=== PATIENT | female | born 1985 | race Hispanic/Latino ===

== ENCOUNTER 2021-04-16 09:32 | Outpatient (CLI) | payer OTHER | END 2021-04-16 09:33 | disposition home or self-care (01) | LOC: BICULT 09:32 | PROVIDERS: ATTEND Family Medicine | DX: O09.892 Supervision of other high risk pregnancies, second trimester (principal); Z3A.19 19 weeks gestation of pregnancy | CPT/HCPCS: 76805 ==

== ENCOUNTER 2023-09-14 00:33 | Inpatient (IN) | payer OTHER ==
[2023-09-14] MEDS ORDERED: Acetaminophen 500 MG TAB ONE (01:02)
[2023-09-14] MEDS ORDERED: Ketorolac Tromethamine 30 MG (1 mL) VIAL ONE (02:10)
[2023-09-14 04:35] VITALS: BMI 33.8
[2023-09-14] MEDS: Propylthiouracil 50 MG TAB PO SCH ×2 (04:49→08:33)
[2023-09-14] MEDS: Hydrocortisone Sod Succ/PF 100 mg/2 ml Vial IVP SCH ×2 (04:56→12:55)
[2023-09-14 05:46] LABS: #Basophils 0.03 10x3/uL (0.0-0.2); #Eosinphils Less than 0.03 10x3/uL (0.0-0.7); %Basophils 0.4 % (0.0-1.0); %Eosinophils 0.2 % (0.0-10.0); %Lymphocytes 16.4 % (21.0-51.0); %Monocytes 6.7 % (0.0-10.0); %Neutrophils 76.1 % (42.0-75.0); Mean Corpuscular Hemoglobin 23.3 pg (27.0-31.0); Mean Corpuscular Volume 77.5 fL (78.0-98.0); Mean Platelet Volume 9.6 fL (7.4-10.4); Platelet Count 207 10x3/uL (130-400); RBC Distribution Width 17.1 % (11.5-14.5); Red Blood Cell (RBC) Count 3.87 mill/uL (4.20-5.40)
[2023-09-14] MEDS ORDERED: Potassium Iodide 1,000 MG/ML ORAL SOL PO SCH (06:00)
[2023-09-14 06:07] LABS: ALT (SGPT) 39 U/L (8-55); AST (SGOT) 38 U/L (5-34); Albumin 2.5 g/dL (3.5-5.0); Alkaline Phosphatase 146 U/L (40-110); Anion Gap 14 mmol/L (10-20); BUN (Urea Nitrogen) 13 mg/dL (7.0-18.7); Bilirubin, Total 1.4 mg/dL (0.2-1.2); Calc. Creatinine Clearance 170 mL/min (70-130); Calcium 8.5 mg/dL (7.8-10.44); Carbon Dioxide 23 mmol/L (22-29); Chloride 107 mmol/L (98-107); Estimated GFR 118; Globulin 3.4 g/dL (2.4-3.5); Glucose 121 mg/dL (70-105); Potassium 3.8 mmol/L (3.5-5.1); Protein, Total 5.9 g/dL (6.0-8.3); Sodium 140 mmol/L (136-145)
[2023-09-14 06:15] LABS: Troponin I 0.045 ng/mL (< 0.028)
[2023-09-14] MEDS: cefTRIAXone\\ROCEPHIN 2 GM in Sodium Chloride 0.9% 100 ML IVPB SCH (06:16)
[2023-09-14] MEDS: Propranolol 60 MG TAB PO SCH (06:16)
[2023-09-14] MEDS: Potassium Iodide 1,000 MG/ML ORAL SOL PO SCH (06:47)
[2023-09-14 07:13] LABS: T4 2.29 ug/dL (4.87-11.72)
[2023-09-14] MEDS: Famotidine 20 MG TAB PO SCH (08:33)
[2023-09-14 08:42] LABS: Troponin I 0.032 ng/mL (< 0.028)
[2023-09-14] MEDS ORDERED: Enoxaparin 40 MG (0.4 mL) SYRINGE SC SCH (09:00)
[2023-09-14] MEDS ORDERED: Famotidine 20 MG TAB PO SCH (09:00)
[2023-09-14] MEDS: Acetaminophen 325 MG TAB PO PRN (12:56)
[2023-09-14] MEDS: Ondansetron PF 4 MG/2 ML Vial IVP PRN (13:02)
[2023-09-14 13:05] LABS: Troponin I 0.016 ng/mL (< 0.028)
[2023-09-14 13:11] LABS: Base Excess (BEa) -4.2 mEq/L (-2.0 to +3.0); CO2 Tension 25.1 mmHg (35.0-45.0); Calcium, Ionized (arterial) 1.09 mmol/L (1.12-1.30); Carboxyhemoglobin (COHb) 0.7 gm% (0.0-3.0); Hematocrit-ABG 33 % (36.0-47.0); Hemoglobin (Hb) 11.3 g/dL (12.0-16.0); Potassium - ABG Lab 4.92 mmol/L (3.70-5.30); pH, Arterial 7.474 (7.35-7.45)
[2023-09-14 13:12] LABS: O2 Tension (PaO2), arterial 42.8 mmHg (80.0-100.0); Puncture Site RRA
[2023-09-14] MEDS: Furosemide 40 MG (4 mL) VIAL SLOW IVP SCH (13:25)
[2023-09-14] MEDS ORDERED: Promethazine HCl 25 MG/ML VIAL IM PRN (13:29)
[2023-09-14] MEDS: Propranolol 40 MG TAB PO SCH (14:00)
[2023-09-14] MEDS: Promethazine HCl 25 MG in Sodium Chloride 0.9% 50 ML IVPB PRN (17:25)
[2023-09-14 20:21] LABS: Free T4 (Free Thyroxine) 2.12 ng/dL (0.70-1.48)
[2023-09-15 04:09] LABS: #Basophils Less than 0.03 10x3/uL (0.0-0.2); #Eosinphils Less than 0.03 10x3/uL (0.0-0.7); %Basophils 0.2 % (0.0-1.0); %Lymphocytes 17.9 % (21.0-51.0); %Monocytes 6.7 % (0.0-10.0); Hematocrit 30.3 % (36.0-47.0); Mean Corpuscular HGB CONC 29.7 g/dL (32.0-36.0); Mean Corpuscular Hemoglobin 23.2 pg (27.0-31.0); Mean Corpuscular Volume 78.1 fL (78.0-98.0); Mean Platelet Volume 9.8 fL (7.4-10.4); Platelet Count 205 10x3/uL (130-400); RBC Distribution Width 16.9 % (11.5-14.5); Red Blood Cell (RBC) Count 3.88 mill/uL (4.20-5.40)
[2023-09-15 04:37] LABS: ALT (SGPT) 241 U/L (8-55); AST (SGOT) 246 U/L (5-34); Albumin 2.4 g/dL (3.5-5.0); Alkaline Phosphatase 149 U/L (40-110); Anion Gap 14 mmol/L (10-20); BUN (Urea Nitrogen) 13 mg/dL (7.0-18.7); Bilirubin, Total 0.5 mg/dL (0.2-1.2); Calc. Creatinine Clearance 167 mL/min (70-130); Calcium 8.6 mg/dL (7.8-10.44); Carbon Dioxide 26 mmol/L (22-29); Chloride 107 mmol/L (98-107); Estimated GFR 117; Globulin 3.6 g/dL (2.4-3.5); Glucose 141 mg/dL (70-105); Sodium 143 mmol/L (136-145)
[2023-09-15 04:47] LABS: T4 14.45 ug/dL (4.87-11.72)
[2023-09-15 04:56] LABS: Free T4 (Free Thyroxine) 2.86 ng/dL (0.70-1.48)
[2023-09-15] MEDS: Enoxaparin 40 MG (0.4 mL) SYRINGE SC SCH (08:40)
[2023-09-15] MEDS: Furosemide 40 MG (4 mL) VIAL SLOW IVP SCH ×2 (08:40→12:50)
[2023-09-15 10:27] LABS: Iron 8 ug/dL (50-170); Iron Binding Capacity, Total 258 mcg/dL (265-497)
[2023-09-15] MEDS: Sacubitril 24MG/Valsartan 26 MG TAB PO SCH ×2 (10:40→20:19)
[2023-09-15] MEDS ORDERED: Propranolol 40 MG TAB PO SCH (12:00)
[2023-09-15 14:36] LABS: ALT (SGPT) 348 U/L (8-55); AST (SGOT) 240 U/L (5-34); Albumin 2.8 g/dL (3.5-5.0); Alkaline Phosphatase 174 U/L (40-110); Anion Gap 15 mmol/L (10-20); BUN (Urea Nitrogen) 14 mg/dL (7.0-18.7); Bilirubin, Total 0.5 mg/dL (0.2-1.2); Calc. Creatinine Clearance 125 mL/min (70-130); Calcium 8.9 mg/dL (7.8-10.44); Carbon Dioxide 31 mmol/L (22-29); Chloride 98 mmol/L (98-107); Estimated GFR 98; Globulin 4.5 g/dL (2.4-3.5); Glucose 177 mg/dL (70-105); Potassium 3.9 mmol/L (3.5-5.1); Protein, Total 7.3 g/dL (6.0-8.3); Sodium 140 mmol/L (136-145)
[2023-09-15 14:57] LABS: Free T4 (Free Thyroxine) 2.25 ng/dL (0.70-1.48); T4 16.93 ug/dL (4.87-11.72)
[2023-09-15] MEDS: Carvedilol 3.125 MG TAB PO SCH (15:55)
[2023-09-16 04:42] LABS: #Basophils Less than 0.03 10x3/uL (0.0-0.2); #Eosinphils Less than 0.03 10x3/uL (0.0-0.7); %Basophils 0.3 % (0.0-1.0); %Eosinophils 0.1 % (0.0-10.0); %Lymphocytes 29.6 % (21.0-51.0); %Monocytes 7.5 % (0.0-10.0); %Neutrophils 62.4 % (42.0-75.0); Hematocrit 32.6 % (36.0-47.0); Hemoglobin 9.8 g/dL (12.0-16.0); Mean Corpuscular HGB CONC 30.1 g/dL (32.0-36.0); Mean Corpuscular Hemoglobin 22.6 pg (27.0-31.0); Mean Corpuscular Volume 75.1 fL (78.0-98.0); Mean Platelet Volume 10.1 fL (7.4-10.4); Platelet Count 264 10x3/uL (130-400); RBC Distribution Width 16.4 % (11.5-14.5); Red Blood Cell (RBC) Count 4.34 mill/uL (4.20-5.40)
[2023-09-16 05:28] LABS: ALT (SGPT) 324 U/L (8-55); AST (SGOT) 169 U/L (5-34); Albumin 2.4 g/dL (3.5-5.0); Alkaline Phosphatase 146 U/L (40-110); Anion Gap 10 mmol/L (10-20); BUN (Urea Nitrogen) 14 mg/dL (7.0-18.7); Bilirubin, Total 0.4 mg/dL (0.2-1.2); Calc. Creatinine Clearance 174 mL/min (70-130); Calcium 8.8 mg/dL (7.8-10.44); Carbon Dioxide 29 mmol/L (22-29); Chloride 105 mmol/L (98-107); Estimated GFR 118; Globulin 3.9 g/dL (2.4-3.5); Glucose 126 mg/dL (70-105); Potassium 3.3 mmol/L (3.5-5.1); Protein, Total 6.3 g/dL (6.0-8.3); Sodium 141 mmol/L (136-145)
[2023-09-16 05:39] LABS: Free T4 (Free Thyroxine) 2.05 ng/dL (0.70-1.48); T4 14.11 ug/dL (4.87-11.72)
[2023-09-16] MEDS: Carvedilol 3.125 MG TAB PO SCH (08:30)
[2023-09-16] MEDS: Sacubitril 24MG/Valsartan 26 MG TAB PO SCH (09:00)
[2023-09-16] MEDS: Potassium Chloride 20 MEQ TAB PO SCH ×2 (09:10→16:15)
[2023-09-16] MEDS: Iron Polysaccharides Complex 150 MG CAP PO SCH (10:40)
[2023-09-16] MEDS: Magnesium Sulfate 4 GM in Sodium Chloride 0.9% 250 ML 250 ML IVPB SCH (11:00)
[2023-09-16] MEDS: Magnesium Sulfate In Water 4 GM in Premix 1 BAG IVPB SCH (11:15)
[2023-09-16] MEDS: Furosemide 40 MG (4 mL) VIAL SLOW IVP SCH (13:10)
[2023-09-17 06:49] LABS: #Basophils 0.03 10x3/uL (0.0-0.2); #Eosinphils Less than 0.03 10x3/uL (0.0-0.7); %Basophils 0.4 % (0.0-1.0); %Eosinophils 0.1 % (0.0-10.0); %Lymphocytes 19.8 % (21.0-51.0); %Monocytes 6.6 % (0.0-10.0); %Neutrophils 72.5 % (42.0-75.0); Hematocrit 37.7 % (36.0-47.0); Hemoglobin 11.3 g/dL (12.0-16.0); Mean Corpuscular Hemoglobin 22.6 pg (27.0-31.0); Mean Corpuscular Volume 75.6 fL (78.0-98.0); Mean Platelet Volume 10.3 fL (7.4-10.4); Platelet Count 331 10x3/uL (130-400); RBC Distribution Width 16.3 % (11.5-14.5); Red Blood Cell (RBC) Count 4.99 mill/uL (4.20-5.40)
[2023-09-17 07:14] LABS: ALT (SGPT) 439 U/L (8-55); AST (SGOT) 146 U/L (5-34); Albumin 2.7 g/dL (3.5-5.0); Alkaline Phosphatase 155 U/L (40-110); Anion Gap 12 mmol/L (10-20); BUN (Urea Nitrogen) 14 mg/dL (7.0-18.7); Bilirubin, Total 0.4 mg/dL (0.2-1.2); Calc. Creatinine Clearance 169 mL/min (70-130); Calcium 9.5 mg/dL (7.8-10.44); Carbon Dioxide 30 mmol/L (22-29); Chloride 103 mmol/L (98-107); Estimated GFR 118; Globulin 4.3 g/dL (2.4-3.5); Glucose 130 mg/dL (70-105); Potassium 4.2 mmol/L (3.5-5.1); Sodium 141 mmol/L (136-145)
[2023-09-17 07:35] LABS: Free T4 (Free Thyroxine) 2.24 ng/dL (0.70-1.48); T4 18.41 ug/dL (4.87-11.72)
[2023-09-17] MEDS: Carvedilol 3.125 MG TAB PO SCH (09:00)
[2023-09-17] MEDS: Iron Polysaccharides Complex 150 MG CAP PO SCH (09:00)
[2023-09-18 04:56] LABS: Anion Gap 14 mmol/L (10-20); BUN (Urea Nitrogen) 12 mg/dL (7.0-18.7); Calc. Creatinine Clearance 172 mL/min (70-130); Calcium 9.2 mg/dL (7.8-10.44); Carbon Dioxide 28 mmol/L (22-29); Chloride 102 mmol/L (98-107); Estimated GFR 119; Glucose 137 mg/dL (70-105); Potassium 4.2 mmol/L (3.5-5.1); Sodium 140 mmol/L (136-145)
[2023-09-18 05:33] LABS: Free T4 (Free Thyroxine) 2.26 ng/dL (0.70-1.48)
[2023-09-18 06:16] LABS: T4 21.12 ug/dL (4.87-11.72)
[2023-09-18 07:52] VITALS: BP 155/98; TEMP 98.1
[2023-09-18] MEDS: Furosemide 20 MG TAB PO SCH (08:29)
== END 2023-09-18 09:17 | disposition left against medical advice (07) | DRG 776 ==
LOC: ERS 00:33 → CCU 02:17 → 2NO 09-17 09:50
PROVIDERS: ADMIT Internal Medicine; ATTEND Internal Medicine
DX: O99.285 Endocrine, nutritional and metabolic diseases complicating the puerperium (principal); E05.91 Thyrotoxicosis, unspecified with thyrotoxic crisis or storm; J96.01 Acute respiratory failure with hypoxia; N12 Tubulo-interstitial nephritis, not specified as acute or chronic; Z90.49 Acquired absence of other specified parts of digestive tract; O86.21 Infection of kidney following delivery; O99.53 Diseases of the respiratory system complicating the puerperium; E87.6 Hypokalemia; R79.89 Other specified abnormal findings of blood chemistry; B96.20 Unspecified Escherichia coli [E. coli] as the cause of diseases classified elsewhere; O99.43 Diseases of the circulatory system complicating the puerperium; I50.9 Heart failure, unspecified; Z79.899 Other long term (current) drug therapy
CPT/HCPCS: 36415; 36600; 71045; 76536; 80048; 80053; 82728; 82805; 83540; 83550; 83735; 83880; 84145; 84436; 84439; 84481; 84484; 85025; 87040; 93306; 96374; J0696; J1650; J1720; J1885; J1940; J2405; J2550; J3475; J3490